=== PATIENT | male | born 1955 | race Caucasian/White ===

== ENCOUNTER → 2019-10-09 | Day surgery (SDC) | payer MEDICARE ==
[~2019-10-09] MED LIST: AMITRIPTYLINE H25 M2 PO; AMLODIPINE BESY10 MG PO; ASA81BEC; ASA81BEC PO; ASPIRIN325 PO; ATIVAN1 M1 PO; ATORVASTATIN CA40 MG PO; BUMETANIDE 1 MG1 M1 PO; BUMEX2 MG PO; CARVEDILOL25 MG PO; CIPRO500 MG PO; CLONIDINE HCL0.2 M2 PO; CYMBALTA30 MG PO; DUONEB 2.5-0.5 M3 ML INH; FENOFIBRATE48 MG PO; FLOMAX0.4 MG PO; FLONASE 0.05%50 MCG NASAL; HUMALOG100 UNIT/2 SQ; HYDRALAZINE 5050 MG PO; HYDRALAZINE HC100 MG PO; HYDROCHLOROTHIA25 M1; HYDROCODONE-APA1 TA1 PO; IPRAT-ALBUT 0.5-3 ML INH; IRON325 PO; LANTUS100 UNIT/M SQ; LASIX 40 MG TAB40 MG; LEVEMIR; LEVEMIR100 UNIT/1 SUBQ; LISINOPRIL-HCT1 EAC2; LOPERAMIDE 2 MG2 M1 PO; LOPRESSOR50 PO; METOLAZONE 2.52.5 MG PO; METOLAZONE 5 MG5 MG PO; NEURONTIN300 MG PO; NOVOLOG MI100 UNIT/2; NOVOLOG100 UNIT/1 SUBQ; OXYCODONE HCL10 MG PO; OXYCONTIN10 M1 PO; PLAVIX 75 MG TA75 MG PO; POTASSIUM20 PO; PRILOSEC 20 MG20 MG PO; PRILOSEC OTC20 MG PO; PRINIVIL20 MG PO; PROAIR HFA8.5 GM INH; PROBIOTIC & AC1 EACH PO; ROBAXIN 750 MG750 M1 PO; SERTRALINE HCL100 MG PO; SIMVASTATIN40 MG; TOPROL XL25 MG PO; TRINATE TABLET1 TAB PO; VANCO; VICODIN
[2019-10-09 14:36] LABS: HEMATOCRIT 34.4 % (42.0-52.0); HEMOGLOBIN 11.5 gm/dL (14.0-18.0); MCH 33.3 pg (26.0-34.0); MCHC 33.6 g/dL (28.0-37.0); MCV 99.1 fL (80.0-100.0); MPV 8.9 fl. (7.2-11.1); RBC 3.47 mil/uL (4.50-6.00); RDW-CV 15.2 % (10.5-14.5); WBC 8.1 thou/uL (4.0-11.0)
[2019-10-09 14:42] LABS: CALCIUM 9.2 mg/dL (8.5-10.1); CREATININE 3.5 mg/dL (0.6-1.3); POTASSIUM 5.7 mmol/L (3.5-5.1)
--- NOTE | 2019-10-10 11:16 | EKG ---
[place] [address] ELECTROCARDIOGRAM REPORT Name: EMAMARCI JR Room: [facility]#: [id number] Admission: 10/09/19 Attend Phys: Martinez Gandara MD Discharge: Date of : 53 Date of Service: 10/09/19 1444 Report #: [id number] THIS REPORT FOR: //name// [facility] Test Date: 2019-10-09 Test Time: 14:44:34 Pat Name: MARCI BOO Department: Room: Gender: Recreation Director: : 1955 Requested By: Martinez Gandara Order Number: [id number] Reading MD: Jose Burt Measurements Intervals [place] Rate: 69 P: 40 NJ: 248 QRS: -18 QRSD: 105 T: 85 QT: 395 QTc: 423 Interpretive Statements Sinus rhythm Prolonged [place] interval Borderline left axis deviation Low voltage, precordial leads Compared to ECG 08/03/2016 07:28:47 Low QRS voltage now present Electronically Signed On 10-10-2019 11:15:13 CHILD WELFARE ASSISTANT by Jose Burt [email or web address] <ELECTRONICALLY SIGNED> By: Jose Burt MD, FACC 10/10/19 1115 1444 1444 Jose Burt MD, FAC /EPI
--- NOTE | 2019-10-10 17:56 | OP ---
[address] [address] OPERATIVE REPORT Name: EMAMARCI JR Room: [facility]#: [id number] Admission: 10/09/19 Attend Phys: Martinez Gandara MD Discharge: Date of : 53 Report #: [id number] THIS REPORT FOR: //name// cc: Chuck Pena MD, Ram MD THIS REPORT FOR: //name// CC: Chuck Gandara DATE OF SERVICE: 10/09/2019 PREOPERATIVE DIAGNOSES: 1. End-stage renal disease. 2. Edema and swelling in left forearm secondary to large side branch stealing flow. POSTOPERATIVE DIAGNOSES: 1. End-stage renal disease. 2. Edema and swelling in left forearm secondary to large side branch stealing flow. PROCEDURE: Left upper extremity AV fistula revision with ligation of side branch stealing flow. SURGEON: Martinez Gandara MD TERRAZZO ROLLER: Dr. Castaneda, Resident. COMPLICATIONS: None. ESTIMATED BLOOD LOSS: 10 mL. SPECIMEN: None. ANESTHESIA: Local sedation. INDICATIONS FOR PROCEDURE: The patient is a very pleasant 64-year-old white male with end-stage renal disease, on dialysis. He has left upper extremity AV fistula. This has undergone multiple revisions in the past. He has complaints of swelling in his left forearm. I previously coiled a large side branch, which was dumping blood into the forearm, likely causing his edema. This initially got better after coil embolization, but then worsened again. I checked an ultrasound, which revealed patent flow in the vessel despite the coil. I thought that perhaps the flow was too great for the coil to occlude it and thus recommended ligation of the side branch. The patient is eager to proceed to [address] [address] OPERATIVE REPORT Name: MARCI BOO JR Room: [facility]#: [id number] Admission: 10/09/19 Attend Phys: Martinez Gandara MD Discharge: Date of : 53 Report #: [id number] improve his edema. Informed consent was obtained from the patient with risks including but not limited to bleeding, infection, need for further surgery, pain, , heart attack, stroke, steal syndrome, continued swelling and pain. The patient understood these risks and was agreeable to proceed. DESCRIPTION OF PROCEDURE: The patient was taken to the OR and placed in a supine position. After adequate sedation was initiated, left arm was prepped and draped in usual sterile fashion. Timeout was performed. I infused 10 mL of 1% lidocaine for local anesthetic. I had marked the location of the vein using ultrasound guidance. We created a small 1 cm incision in the skin. Sharp and blunt dissections were carried down to the vein. Vein was easily identified. It appeared to be patent. I doubly ligated with a 2-0 silk suture and medium clips. I divided the vein, it was quite large. There was clearly no further flow in it after ligation. We irrigated the wound with antibiotic saline, closed the wound in multiple layers using 3-0 Vicryl and Monocryl for the skin. Incision was dressed with Dermabond. The patient was taken alert and awake to recovery room in good condition. All needle and instrument counts were correct. We will see how the patient does from this. If this does not improve his symptoms, I do not have anything else I can offer him other than ligation of his fistula, which we are obviously not eager to do. <ELECTRONICALLY SIGNED> By: Sander Celestin DO 10/10/19 1756 1708 1852Rmarguerite Gandara MD /nt
== END | disposition home or self-care (01) ==
LOC: M.SUR 13:30
PROVIDERS: Surgery Vascular Surgery
DX: T82.898A Other specified complication of vascular prosthetic devices, implants and grafts, initial encounter (principal); N18.6 End stage renal disease; J44.9 Chronic obstructive pulmonary disease, unspecified; Z79.899 Other long term (current) drug therapy; Z79.82 Long term (current) use of aspirin; Y83.8 Other surgical procedures as the cause of abnormal reaction of the patient, or of later complication, without mention of misadventure at the time of the procedure

== ENCOUNTER 2019-11-07 12:36 | Inpatient (IN) | payer MEDICARE ==
[~2019-11-07] VITALS: Ht 182.9 cm; Wt 176.0 kg
--- NOTE | ~2019-11-07 | OP ---
[address] [address] OPERATIVE REPORT Name: EMAMARCI Carlos NEGRETE Room: [address] IN [facility]#: [id number] Admission: 11/07/19 Attend Phys: Niecy Issa Discharge: Date of : 53 Report #: [id number] THIS REPORT FOR: //name// cc: Chuck Pena MD, Ram MD ~ THIS REPORT FOR: //name// CC: Chuck Reyes DATE OF SERVICE: 11/08/2019 PREOPERATIVE DIAGNOSES: Osteomyelitis and diabetic foot ulcer, left fourth toe. POSTOPERATIVE DIAGNOSES: Osteomyelitis and diabetic foot ulcer, left fourth toe. PROCEDURE: Left fourth toe amputation metatarsophalangeal joint. SURGEON: Martinez Gandara MD DATABASE ADMINISTRATION PROJECT MANAGER: Sigifredo Aden. COMPLICATIONS: None. ESTIMATED BLOOD LOSS: Minimal. ANESTHESIA: Local sedation. INDICATIONS FOR PROCEDURE: The patient is well known to me. He is a very pleasant 64-year-old white male diabetic with end-stage renal disease, not yet on dialysis. He developed fairly rapid infection of his left fourth toe. He has also had previous left fifth toe amputation and right leg amputation. There was exposed bone and purulent drainage in my office. For this reason, I recommended admission for IV antibiotics and toe amputation. Informed consent was obtained from the patient with risks including but not limited to bleeding, infection, need for further surgery, pain, , heart attack, stroke, higher amputation. The patient understood these risks and was agreeable to proceed. DESCRIPTION OF PROCEDURE: The patient was taken to the OR and placed in supine position. After adequate sedation was initiated, his left leg was circumferentially prepped and draped in usual sterile fashion. Timeout was performed. We excised the base of the left fourth toe. We were able to leave a skin flap medially. We took proximal phalanx for culture. I rongeured back the metatarsal head. I got good bleeding healthy bone[place] [address] OPERATIVE REPORT Name: MARCI BOO JR Room: [address] IN [facility]#: [id number] Admission: 11/07/19 Attend Phys: Niecy Issa Discharge: Date of : 53 Report #: [id number] antibiotic saline. I closed the defect using the flap and interrupted 3-0 nylon sutures. We dressed the incision with Xeroform, 4 x 4's, Kerlix wrap and Harinder wrap. The patient tolerated the procedure well and was taken alert and awake to recovery room in good condition. All needle and instrument counts were correct at the end of the case. By: 1131 [id number] Gandara MD /nt
[2019-11-07 15:07] LABS: ABSOLUTE BASOPHILS 0.1 thou/uL (0.0-0.2); ABSOLUTE EOSINOPHILS 0.3 thou/uL (0.0-0.7); ABSOLUTE LYMPHOCYTES 0.7 thou/uL (0.8-5.3); ABSOLUTE MONOCYTES 0.5 thou/uL (0.0-1.2); ABSOLUTE NEUTROPHILS 6.9 thou/uL (1.6-8.1); BASOPHILS 0.9 %; EOSINOPHILS 3.1 %; HEMATOCRIT 30.2 % (42.0-52.0); HEMOGLOBIN 10.5 gm/dL (14.0-18.0); LYMPHOCYTES 8.8 %; MCHC 34.8 g/dL (28.0-37.0); MCV 97.7 fL (80.0-100.0); MPV 9.8 fl. (7.2-11.1); NUCLEATED RBCS 0 /100WBC; PLATELET COUNT* 189 thou/uL (150-400); POLYS 81.2 %; RBC 3.09 mil/uL (4.50-6.00); RDW-CV 15.2 % (10.5-14.5); WBC 8.4 thou/uL (4.0-11.0)
[2019-11-07 15:21] LABS: APTT 25.2 Seconds (25.0-31.3)
[2019-11-07 15:33] LABS: CALCIUM 7.4 mg/dL (8.5-10.1); POTASSIUM 3.9 mmol/L (3.5-5.1); TOTAL BILIRUBIN 0.4 mg/dL (<0.1-1.0)
[2019-11-07 15:37] LABS: MAGNESIUM 0.8 mg/dL (1.8-2.4)
[2019-11-07 16:00] VITALS: BP 185/74
--- NOTE | 2019-11-07 19:00 | NUR ---
PATIENT REC'D TO RM 118 PER DIRECT ADMIT ORDERS. SEE CHART FOR WOUND PICS. PATIENT PLEASANT AND COOPERATIVE. PATIENT'S OWN TRILOGY IN RM. O2 2L/NC. IV INSERTED PER IV/PICC NURSE. ANTIBX GIVEN ORDERED. PATIENT DENIES PAIN. PATIENT ABLE TO TURN AND PIVOT TO CHAIR AND BSC. PATIENT STATES HX STROKES, STATES HAVING LEFT SIDE WEAKNESS, STATES THAT HE IS NOT ABLE TO USE BOTH OF BUE VERY WELL, STATES IT IS DIFF TO HOLD THINGS AT TIMES. NOTED AKA AMY, NOTED PROSTHETIC LEG W/ PATIENT. SEE MAR. HRLY ROUNDS DONE. RESTING IN BED AT THIS TIME. CALL LIGHT IN REACH. ~TJRN
[2019-11-07 20:40] VITALS: BP 184/61
[2019-11-08 03:07] LABS: GLYCOHEMOGLOBIN (HGB A1C) 9.5 % (4.8-5.6)
[2019-11-08 04:00] VITALS: BP 155/66
[2019-11-08 04:53] LABS: ABSOLUTE BASOPHILS 0.1 thou/uL (0.0-0.2); ABSOLUTE EOSINOPHILS 0.2 thou/uL (0.0-0.7); ABSOLUTE MONOCYTES 0.4 thou/uL (0.0-1.2); ABSOLUTE NEUTROPHILS 5.1 thou/uL (1.6-8.1); BASOPHILS 0.8 %; EOSINOPHILS 3.4 %; HEMATOCRIT 29.3 % (42.0-52.0); HEMOGLOBIN 10.1 gm/dL (14.0-18.0); LYMPHOCYTES 14.9 %; MCH 33.8 pg (26.0-34.0); MCHC 34.3 g/dL (28.0-37.0); MCV 98.4 fL (80.0-100.0); MONOCYTES 6.2 %; NUCLEATED RBCS 0 /100WBC; PLATELET COUNT* 171 thou/uL (150-400); POLYS 74.7 %; RBC 2.98 mil/uL (4.50-6.00); RDW-CV 15.2 % (10.5-14.5); WBC 6.9 thou/uL (4.0-11.0)
[2019-11-08 05:30] LABS: ALBUMIN 2.8 g/dL (3.4-5.0); CALCIUM 7.4 mg/dL (8.5-10.1); POTASSIUM 3.6 mmol/L (3.5-5.1); TOTAL BILIRUBIN 0.4 mg/dL (<0.1-1.0); TOTAL PROTEIN 6.5 g/dL (6.4-8.2)
--- NOTE | 2019-11-08 06:25 | NUR ---
Alert and oriented x 4. Rt stump is acewrapped. L toes are exposed and they have very dry,discolored skin. He has had nothing by mouth since midnight. He denies pain. He has slept well.
[2019-11-08 08:55] VITALS: BP 152/58
--- NOTE | 2019-11-08 11:23 | CON ---
[address] [address] CONSULTATION Name: MARCI BOO JR Room: [address] ..#: [id number] Admission: 11/07/19 Attend Phys: Niecy Issa Discharge: Date of : 53 Report #: [id number] THIS REPORT FOR: //name// cc: Chuck Pena MD, Ram MD ~ THIS REPORT FOR: //name// CC: Chuck Reyes DATE OF SERVICE: 11/08/2019 INFECTIOUS DISEASE CONSULTATION ATTENDING PHYSICIAN: Palomo Reyes DO. REASON FOR EVALUATION: Left foot inflammatory process, suspected lateral fourth toe osteomyelitis involving distal aspect. HISTORY OF PRESENT ILLNESS: Chart reviewed, patient examined. A 64-year-old with extensive medical history given his age. He has diabetes mellitus type 2 complicated by peripheral neuropathy, vasculopathy, previous right below-knee amputation, left fifth toe amputation, also has O2-requiring COPD, obstructive sleep apnea requiring CPAP, who was [facility] through [facility] with concerns about possible osteomyelitis involving the fourth toe, it was fairly abrupt onset over the last few days, became quite necrotic, did not appreciate an odor. There was some degree of drainage. No systemic illness including fevers or chills. Denies any pulmonary or gastrointestinal complaints other than his baseline. He is tentatively scheduled to undergo operative amputation today. Empirically started on therapy with vancomycin and ceftriaxone. ALLERGIES: None. CURRENT MEDICATIONS: Include lactobacillus, metolazone, duloxetine, aspirin, fenofibrate, clopidogrel, gabapentin, clonidine, bumetanide, carvedilol, atorvastatin, pantoprazole, insulin, hydralazine, ceftriaxone and vancomycin. PAST MEDICAL HISTORY: As noted above, diabetes mellitus type 2, COPD, hypertension, hyperlipidemia, depression, cataracts, previous below-knee amputation on the right, reflux, obstructive apnea, history of depression. SOCIAL HISTORY: Nonsmoker, no ethanol, no illicit drug use. FAMILY HISTORY: [place] [address] CONSULTATION Name: MARCI BOO JR Room: [address]#: [id number] Admission: 11/07/19 Attend Phys: Niecy Issa Discharge: Date of : 53 Report #: [id number] REVIEW OF SYSTEMS: Otherwise, unremarkable 10-point review of systems. PHYSICAL EXAMINATION: GENERAL: Alert, cooperative, appropriate, is chronically ill appearing. He is obese. VITAL SIGNS: Temperature 97.9, pulse 81, respirations 20, blood pressure 155/66. SKIN: Warm, dry, no rashes. HEENT AND NECK: He has got a thick neck, it is supple. Extraocular muscles intact. LUNGS: Diminished breath sounds. HEART: Regular. I do not appreciate murmur. ABDOMEN: Obese, somewhat firm, nontender. EXTREMITIES: Below-knee amputation on the right. Left lower extremity foot has a dermopathy. There is an ulcerative lesion over the distal lateral aspect of the fourth toe with absence of the fifth toe having been amputated. There is moderate degree of inflammation at this point, I do not appreciate odor, no significant purulence. and RECTAL: Deferred. LABORATORY DATA: CBC: White count of 8.4, H and H 10.5 and 30.2, platelets of 189. Lactic acid 1.0. Chest x-ray, no acute process. Electrolytes: Sodium 137, potassium 3.9, chloride 96, bicarbonate is 35, anion gap of 6, BUN and creatinine 45 and 3.0, glucose is 181. LFTs are unremarkable. Albumin of 3.0. Hemoglobin A1c of 9.5. ASSESSMENT AND PLAN: Suspected deep infection involving the distal left lower extremity. Noted plans likely amputation, fourth toe. We will continue empiric therapy. At this point, await additional studies including cultures, path report. We will add incentive spirometry, certainly at risk for nosocomial related infectious complications. <ELECTRONICALLY SIGNED> By: Mello Singletary MD 11/08/19 1123 0810 1036Jomalaika Singletary MD /nt
[2019-11-08] MEDS ORDERED: BACTRIM DS TAB1 EACH PO (13:40)
[2019-11-08] MEDS ORDERED: NORCO 5-325 TA1 EAC1 PO (15:47)
[2019-11-08 15:54] VITALS: BP 152/58
[2019-11-08 15:55] VITALS: BP 152/58
--- NOTE | 2019-11-08 16:40 | NUR ---
DISCHARGE INSTRUCTIONS FOR WOUND CARE AT HOME: CHANGE TOE AMPUTATION DRESSING WITH DRY DRESSINGS AND HARRISON WRAP DAILY AND NEEDED.
--- NOTE | 2019-11-08 17:05 | NUR ---
PATIENT DISCHARGED TO HOME SELF CARE. PATIENT TO SURGERY THIS AM, RETURNED TO AT 1205. PATIENT AWAKE AND ALERT AT THIS TIME. DENIES PAIN. REPORT REC'D FROM LINE OPERATOR. O2 2L/NC JEANETH. SEE OCT. DISCHARGE INSTRUCTIONS REVIEWED W/ PATIENT. SURG SITE DRSG CARES REVIEWED W/ PATIENT, PATIENT STATES VERBALLY OF UNDERSTANDING, STATES HIS WILL HELP HIM WITH THE DRSG CHANGES. SUPPLIES GIVEN. COPY OF DISCHARGE INSTRUCTIONS AND ORIG SCRIPT GIVEN TO PATIENT. BELONINGS GATHERED. PATIENT DENIES OTHER NURSING NEEDS. ESCORTED TO AWAITING VEHICLE PER WC W/ NURSING PRESENT. TO RECEIVE PATIENT AT [facility] EN[facility]. BELONINGS WITH PATIENT AT TIME OF DISCHARGE. ~TJRN
== END 2019-11-08 17:05 | disposition home or self-care (01) | DRG 540 ==
LOC: M.ORTHSURG 12:36
PROVIDERS: ADMIT Internal Medicine
DX: M86.172 Other acute osteomyelitis, left ankle and foot (principal); Z68.43 Body mass index [BMI] 50.0-59.9, adult; E11.51 Type 2 diabetes mellitus with diabetic peripheral angiopathy without gangrene; E66.01 Morbid (severe) obesity due to excess calories; J44.9 Chronic obstructive pulmonary disease, unspecified; Z89.511 Acquired absence of right leg below knee; Z89.422 Acquired absence of other left toe(s)